=== PATIENT | female | born 2000 | race Caucasian/White ===

== ENCOUNTER 2020-08-26 11:16 | Inpatient (IN) | payer MEDICAID ==
[~2020-08-26] VITALS: Ht 160 cm; Wt 52.7 kg
[2020-08-26] MEDS ORDERED: ACETAMINOPHEN 325 MG TABLET PO PRN (11:30)
[2020-08-26] MEDS ORDERED: ONDANSETRON ODT 4 MG PO PRN (11:30)
[2020-08-26] MEDS ORDERED: POLYETHYLENE GLYCOL 17 GM PACKET PO PRN (11:30)
[2020-08-26] MEDS ORDERED: BISACODYL 10 MG SUPP PR PRN (11:30)
[2020-08-26] MEDS ORDERED: DOCUSATE 100 MG CAPSULE PO PRN (11:30)
[2020-08-26 13:20] VITALS: BP 116/62
[2020-08-26 16:21] LABS: BASOPHILS % (AUTO) 0 % (0-1); EOSINOPHILS % (AUTO) 0 % (1-7); LYMPHOCYTES % (AUTO) 16 % (22-44); MEAN CORPUSCULAR HEMOGLOBIN 33.5 pg (27.0-34.8); MEAN CORPUSCULAR HGB CONC 34.2 g/dL (32.4-35.8); MEAN PLATELET VOLUME 9.3 fL (7.4-10.4); MONOCYTES % (AUTO) 5 % (2-9); NEUTROPHILS % (AUTO) 79 % (42-75); PLATELET COUNT 164 x10^3/uL (130-400); RED BLOOD COUNT 3.52 x10^6/uL (3.82-5.3); RED CELL DISTRIBUTION WIDTH 12.9 % (9.6-15.2)
[2020-08-26 16:22] LABS: ALBUMIN 3.2 g/dL (3.4-5.0); ANION GAP 6 mmol/L (5-15); CALCIUM 8.3 mg/dL (8.5-10.1); CHLORIDE 111 mmol/L (98-107); MD NO
[2020-08-26 16:26] LABS: ALANINE AMINOTRANSFERASE 13 U/L (12-78); ALKALINE PHOSPHATASE 40 U/L (45-117); BILIRUBIN,TOTAL 0.4 mg/dL (0.2-1.0); CREATININE 0.33 mg/dL (0.55-1.02); TOTAL PROTEIN 5.8 g/dL (6.4-8.2)
[2020-08-26 19:48] VITALS: BP 100/60
[2020-08-27 06:24] LABS: ANION GAP 5 mmol/L (5-15); CALCIUM 8.3 mg/dL (8.5-10.1); CHLORIDE 110 mmol/L (98-107)
[2020-08-27 06:33] LABS: ALANINE AMINOTRANSFERASE 12 U/L (12-78); ALKALINE PHOSPHATASE 40 U/L (45-117); BILIRUBIN,TOTAL 0.6 mg/dL (0.2-1.0); CHOL/HDL RATIO 2.8; CHOLESTEROL, TOTAL 140 mg/dL (140-239); CREATININE 0.45 mg/dL (0.55-1.02); FREE T4 (FREE THYROXINE) 1.17 ng/dL (0.76-1.46); HDL CHOL % 36 % (28-40); HDL CHOLESTEROL (DIRECT) 50 mg/dL (40-60); LDL CHOLESTEROL,CALCULATED 71 mg/dL (54-169); LDL/HDL RATIO 1.4 (0.5-3.0); TOTAL PROTEIN 5.9 g/dL (6.4-8.2); TRIGLYCERIDES 97 mg/dL (50-200); VLDL CHOLESTEROL 19 mg/dL (0-25)
[2020-08-27 07:58] VITALS: BP 103/67
== END 2020-08-27 18:54 | disposition left against medical advice (07) | DRG 832 ==
LOC: 3E 13:17
PROVIDERS: ADMIT Psychiatry & Neurology Psychosomatic Medicine; ATTEND Psychiatry & Neurology Psychosomatic Medicine
DX: O99.342 Other mental disorders complicating pregnancy, second trimester (principal); F32.2 Major depressive disorder, single episode, severe without psychotic features; O99.322 Drug use complicating pregnancy, second trimester; O9A.212 Injury, poisoning and certain other consequences of external causes complicating pregnancy, second trimester; Z53.29 Procedure and treatment not carried out because of patient's decision for other reasons; T39.1X2A Poisoning by 4-Aminophenol derivatives, intentional self-harm, initial encounter; F12.90 Cannabis use, unspecified, uncomplicated; Z3A.17 17 weeks gestation of pregnancy; Y92.89 Other specified places as the place of occurrence of the external cause; Z56.0 Unemployment, unspecified
CPT/HCPCS: 36415; 71045; 76815; 80053; 80061; 80299; 83735; 84100; 84439; 84443; 85025; 93005